=== PATIENT | male | born 1965 | race Caucasian/White ===

== ENCOUNTER 2019-06-15 11:54 | Emergency (ER) | payer BC, OTHER ==
[~2019-06-15 11:54] MED LIST: Aspirin PO; HYDR-2132 PO; LAMISIL PO
[2019-06-15 12:24] LABS: BASOPHILS % (AUTO) 0.5 % (0.0-5.0); HEMATOCRIT 45.6 % (42-54); LYMPHOCYTES % (AUTO) 27.3 % (21.0-51.0); MEAN CORPUSCULAR HEMOGLOBIN 32.1 pg (27.0-33.0); MEAN CORPUSCULAR HGB CONC 35.1 g/dL (32.0-36.0); MEAN CORPUSCULAR VOLUME 91.7 fL (79-99); MONOCYTES % (AUTO) 13.7 % (3.0-13.0); NEUTROPHILS % (AUTO) 56.5 % (40.0-77.0); NUCLEATED RED BLOOD CELLS 0.2 % (0.0-0.19); PLATELET COUNT (AUTO) 194 K/uL (130-400); RED BLOOD CELL COUNT(AUTO) 4.97 MIL/uL (4.50-6.20); WHITE BLOOD COUNT (AUTO) 5.8 K/uL (4.8-10.8)
[2019-06-15 12:32] LABS: POTASSIUM 3.7 mmol/L (3.5-5.1)
[2019-06-15 12:35] LABS: INR 0.96 (0.85-1.15); PARTIAL THROMBOPLASTIN TIME 26.4 SEC (26.3-35.5); PROTHROMBIN TIME 10.1 SEC (9.6-11.6)
[2019-06-15 12:38] LABS: ALBUMIN 3.6 g/dL (3.5-5.0); BILIRUBIN,TOTAL 0.6 mg/dL (0.2-1.0); TOTAL PROTEIN, SERUM 7.3 g/dL (6.0-8.3)
[2019-06-15] MEDS ORDERED: KETOROLAC TROMETHAMINE 30MG/ML ONE (13:20)
[2019-06-15] MEDS ORDERED: IOHEXOL-350 75 ML VIAL IV ONE (14:52)
== END 2019-06-15 16:28 | disposition home or self-care (01) ==
LOC: EDH 11:54
DX: J44.9 Chronic obstructive pulmonary disease, unspecified (principal); R07.89 Other chest pain
CPT/HCPCS: 36415; 71045; 71275; 80053; 84484; 85025; 85378; 85610; 85730; 93005; 96374; 96375; 99285; J1885; Q9967

== ENCOUNTER 2019-10-15 20:36 | Emergency (ER) | payer OTHER ==
[2019-10-15] MEDS ORDERED: OCTYL 2-CYANOACRYLATE 1 EACH TP ONE (20:50)
== END 2019-10-15 21:27 | disposition home or self-care (01) ==
LOC: EDH 20:36
DX: S61.211A Laceration without foreign body of left index finger without damage to nail, initial encounter (principal); W26.8XXA Contact with other sharp object(s), not elsewhere classified, initial encounter; Y93.89 Activity, other specified; Y92.89 Other specified places as the place of occurrence of the external cause; Y99.8 Other external cause status
CPT/HCPCS: 12001; 73140